=== PATIENT | male | born 1965 | race Caucasian/White ===

== ENCOUNTER 2017-09-30 22:07 | Emergency (ER) | payer OTHER ==
[2017-09-30] MEDS ORDERED: SODIUM CHLORIDE 0.9% 1,000 ML IV STA (22:46)
[2017-09-30] MEDS ORDERED: LORazepam 2 MG/ML INJ IV STA (22:46)
[2017-09-30] MEDS ORDERED: THIAMINE 100 MG/ML 2 ML VIAL IM STA (22:49)
[2017-09-30] MEDS ORDERED: LORazepam 2 MG/ML INJ IV PRN ×3 (22:49)
--- NOTE | 2017-09-30 22:53 | ED ---
Seizure HPI - General Chief Complaint: Seizure Stated Complaint: Seizures Time Seen by Provider: 09/30/17 22:09 Source: patient, EMS Mode of arrival: EMS Limitations: no limitations - History of Present Illness Initial Comments: Patient is a 52-year-old male presenting for seizure-like activity. He is currently at [facility] in his been there for 12 days because he had alcohol withdrawals and had a seizure. He states that his last drink was 12 days ago and he has had no recreational drug use. However, today he was smoking outside when he had sudden onset seizure. He is unsure how long the seizure lasted and when he woke up, he was completely with it and not confused. He states that he did urinate himself but did not hit his head and denies any headache, lightheadedness, dizziness, change in mental status and he was told that when he had the seizure, his limbs were moving rhythmically. He also states that he takes Depakote, Abilify, Zoloft, BuSpar. He also states that he had a history of seizure prior to this particular event. - Related Data Home Medications Medication Instructions Recorded Confirmed ARIPiprazole [Abilify] 5 mg PO HS 09/30/17 09/30/17 Acetaminophen [Tylenol Arthritis] 650 mg PO Q4H PRN 09/30/17 09/30/17 Atenolol [Tenormin] 50 mg PO DAILY 09/30/17 09/30/17 Calcium Carb/Magnesium Ox,Carb 2 tab PO TID 09/30/17 09/30/17 [Sylvain-Mag 500-250 MG Chewable] Divalproex ER [Depakote ER] 1,000 mg PO HS 09/30/17 09/30/17 Ibuprofen [Motrin] 600 mg PO Q6HR PRN 09/30/17 09/30/17 Lisinopril-Hctz 20-25 mg 1 tab PO DAILY 09/30/17 09/30/17 [Zestoretic 20-25] Nicotine 21Mg/24Hr Patch [Habitrol 1 patch TRANSDERM Q48H 09/30/17 09/30/17 21Mg/24Hr Patch] OXcarbazepine [Trileptal] 150 mg PO BID 09/30/17 09/30/17 QUEtiapine FUMARATE [SEROquel] 300 mg PO HS 09/30/17 09/30/17 Sertraline [Zoloft] 100 mg PO BID 09/30/17 09/30/17 busPIRone HCl [Buspar] 10 mg PO TID PRN 09/30/17 09/30/17 Allergies Allergy/AdvReac Type Severity Reaction Status Date / Time No Known Allergies Allergy Verified 09/30/17 22:24 Review of Systems ROS Statement: Those systems with pertinent positive or pertinent negative responses have been documented in the HPI. Constitutional: Negative for chills, fatigue and fever. HENT: Negative for congestion. Respiratory: Negative for chest tightness, shortness of breath and wheezing. Negative for cough Cardiovascular: Negative for chest pain and palpitations. Gastrointestinal: Negative for abdominal pain. Negative for abdominal distention , diarrhea, nausea and vomiting. Genitourinary: Negative for dysuria. Musculoskeletal: Negative for back pain, neck pain and neck stiffness. Skin: Negative for color change. Neurological: Negative for dizziness, speech difficulty, weakness and light- headedness. Positive for seizure-like activity and tremors Psychiatric/Behavioral: Negative for agitation and confusion. Positive for anxiety ROS Other: All systems not noted in ROS Statement are negative. Past Medical History Past Medical History: Seizure Disorder History of Any Multi-Drug Resistant Organisms: None Reported Additional Past Surgical History / Comment(s): stent placed Past Psychological History: No Psychological Hx Reported, Anxiety Smoking Status: Current every day smoker Past Alcohol Use History: Daily Past Drug Use History: Marijuana General Exam - General Exam Comments Initial Comments: Constitutional: Pt is oriented to person, place, and time. Pt appears well- developed and well-nourished. No distress. HENT: Head: Normocephalic and atraumatic. Eyes: EOM are normal. Neck: Normal range of motion. Neck supple. Cardiovascular: Normal rate, regular rhythm, S1 normal, S2 normal and normal heart sounds. Exam reveals no gallop and no friction rub. No murmur heard. Pulmonary/Chest: Effort normal and breath sounds normal. No tachypnea and no bradypnea. No respiratory distress. No wheezes or rales noted. Abdominal: Soft. Bowel sounds are normal. Pt exhibits no shifting dullness, no distension, no pulsatile liver, no fluid wave, no abdominal bruit and no ascites. There is no tenderness. There is no rigidity, no rebound, no guarding, no tenderness at McBurney's point and negative Jaramillo's sign. Musculoskeletal: Normal range of motion. Neurological: Pt is alert and oriented to person, place, and time. No cranial nerve deficit. Patient is tremulous Skin: Skin is warm and dry. No rash noted. Pt is not diaphoretic. No erythema. No pallor. Psychiatric: Pt has a normal mood and affect. Pt behavior is normal. Thought content normal. Limitations: no limitations Course Vital Signs 09/30/17 09/30/17 22:08 23:51 Temperature 99.3 F 97.6 F Pulse Rate 82 70 Respiratory 18 20 Rate Blood Pressure 132/73 140/67 O2 Sat by Pulse 97 96 Oximetry Medical Decision Making - Medical Decision Making Laboratory studies showed that there was no significant leukocytosis and electrolytes are relatively within normal limits. There is also no evidence of transaminitis and urinalysis and urine drug screen were also noted to be negative. However, Depakote level was measured at 20.7 which is below therapeutic limits. Neurology was attempted to be contacted but could not be reached to discuss adjustments for Depakote. Nonetheless, patient was given additional dose here in the emergency department. Cardiac evaluation included EKG which showed no significant abnormalities. There were some larger T waves in V2 and V3 these do not appear to be hyperacute a cardiac etiology is very unlikely considering the patient had no chest pain or shortness of breath and continues to remain symptom-free. Additionally, head CT was not performed as the patient showed no evidence of trauma and had no focal neural deficits. Patient will be given a prescription for Librium in the event that this is alcohol withdrawal. However, it is unclear whether this is truly a seizure like activity or syncope. Nonetheless, patient was strongly advised to follow- up with PCP in the next 1-2 days which she was agreeable to. - Lab Data Result diagrams: 09/30/17 22:26 09/30/17 22:26 Lab Results 09/30/17 09/30/17 09/30/17 Range/Units 22:26 22:26 23:44 WBC 8.7 (3.8-10.6) k/uL RBC 4.73 (4.30-5.90) m/uL Hgb 14.7 (13.0-17.5) gm/dL Hct 43.8 (39.0-53.0) % MCV 92.6 (80.0-100.0) fL MCH 31.0 (25.0-35.0) pg MCHC 33.5 (31.0-37.0) g/dL RDW 12.9 (11.5-15.5) % Plt Count 212 (150-450) k/uL Neutrophils % 71 % Lymphocytes % 18 % Monocytes % 7 % Eosinophils % 2 % Basophils % 1 % Neutrophils # 6.2 (1.3-7.7) k/uL Lymphocytes # 1.6 (1.0-4.8) k/uL Monocytes # 0.6 (0-1.0) k/uL Eosinophils # 0.2 (0-0.7) k/uL Basophils # 0.0 (0-0.2) k/uL Sodium 137 (137-145) mmol/L Potassium 4.4 (3.5-5.1) mmol/L Chloride 100 (98-107) mmol/L Carbon Dioxide 23 (22-30) mmol/L Anion Gap 14 mmol/L BUN 39 H (9-20) mg/dL Creatinine 1.00 (0.66-1.25) mg/dL Est GFR (CKD-EPI)AfAm >90 (>60 ml/min/1.73 sqM) Est GFR (CKD-EPI)NonAf 87 (>60 ml/min/1.73 sqM) Glucose 93 (74-99) mg/dL Calcium 9.4 (8.4-10.2) mg/dL Magnesium 2.2 (1.6-2.3) mg/dL Total Bilirubin 0.1 L (0.2-1.3) mg/dL AST 28 (17-59) U/L ALT 35 (21-72) U/L Alkaline Phosphatase 67 (38-126) U/L Total Protein 6.7 (6.3-8.2) g/dL Albumin 3.8 (3.5-5.0) g/dL Urine Color Light Yellow Urine Appearance Clear (Clear) Urine pH 6.5 (5.0-8.0) Ur Specific [place] 1.015 (1.001-1.035) Urine Protein Negative (Negative) Urine Glucose (UA) Negative (Negative) Urine Ketones Negative (Negative) Urine Blood Negative (Negative) Urine Nitrite Negative (Negative) Urine Bilirubin Negative (Negative) Urine Urobilinogen <2.0 (<2.0) mg/dL Ur Leukocyte Esterase Negative (Negative) Salicylates <1.0 mg/dL Urine Opiates Screen Not Detected (NotDetected) Ur Oxycodone Screen Not Detected (NotDetected) Urine Methadone Screen Not Detected (NotDetected) Ur Propoxyphene Screen Not Detected (NotDetected) Acetaminophen <10.0 ug/mL Ur Barbiturates Screen Not Detected (NotDetected) Valproic Acid 20.7 ug/mL U Tricyclic Antidepress Not Detected (NotDetected) Ur Phencyclidine Scrn Not Detected (NotDetected) Ur Amphetamines Screen Not Detected (NotDetected) U Methamphetamines Scrn Not Detected (NotDetected) U Benzodiazepines Scrn Not Detected (NotDetected) Urine Cocaine Screen Not Detected (NotDetected) U Marijuana (THC) Screen Not Detected (NotDetected) Serum Alcohol <10 mg/dL - EKG Data EKG Comments: EKG shows normal sinus rhythm with a rate of 67 bpm, LA interval 154, QRS 82, QTC 384. There is no significant ST elevations or depressions Disposition Clinical Impression: Seizure-like activity Disposition: HOME SELF-CARE Condition: Good Instructions: Recurrent Seizures in Adults (ED) Is patient prescribed a controlled substance at d/c from ED?: No Referrals: Nonstaff,Physician [Primary Care Provider] - 1-2 days Time of Disposition: 01:06
[2017-09-30 23:05] LABS: Basophils % (A) 1 %; Eosinophils # (A) 0.2 k/uL (0-0.7); Eosinophils % (A) 2 %; HCT 43.8 % (39.0-53.0); HGB 14.7 gm/dL (13.0-17.5); Lymphocytes # (A) 1.6 k/uL (1.0-4.8); Lymphocytes % (A) 18 %; MCHC 33.5 g/dL (31.0-37.0); MCV 92.6 fL (80.0-100.0); Mean Platelet Volume 7.1; Monocytes # (A) 0.6 k/uL (0-1.0); Monocytes % (A) 7 %; Neutrophils # (A) 6.2 k/uL (1.3-7.7); Neutrophils % (A) 71 %; Platelet Count 212 k/uL (150-450); RBC 4.73 m/uL (4.30-5.90); RDW 12.9 % (11.5-15.5); WBC 8.7 k/uL (3.8-10.6)
[2017-09-30 23:12] LABS: ALT 35 U/L (21-72); AST 28 U/L (17-59); Acetaminophen <10.0 ug/mL; Albumin 3.8 g/dL (3.5-5.0); Alcohol <10 mg/dL; Alkaline Phosphatase 67 U/L (38-126); Anion Gap 14 mmol/L; Blood Urea Nitrogen 39 mg/dL (9-20); Calcium 9.4 mg/dL (8.4-10.2); Carbon Dioxide 23 mmol/L (22-30); Chloride 100 mmol/L (98-107); Glucose 93 mg/dL (74-99); Magnesium 2.2 mg/dL (1.6-2.3); Potassium 4.4 mmol/L (3.5-5.1); Salicylate <1.0 mg/dL; Sodium 137 mmol/L (137-145); Total Bilirubin 0.1 mg/dL (0.2-1.3); Total Protein 6.7 g/dL (6.3-8.2)
[2017-09-30 23:17] LABS: Valproic Acid (Depakene) 20.7 ug/mL
[2017-09-30] MEDS ORDERED: clonazePAM 1 MG TAB PO STA (23:25)
[2017-09-30 23:58] LABS: Appearance,Urine Clear (Clear); Bilirubin,Urine Negative (Negative); Blood,Urine Negative (Negative); Color,Urine Light Yellow; Glucose,Urine (UA) Negative (Negative); Ketones,Urine Negative (Negative); Leukocyte Esterase,Urine Negative (Negative); Nitrite,Urine Negative (Negative); PH, Urine 6.5 (5.0-8.0); Protein,Urine Negative (Negative); Specific Gravity,Urine 1.015 (1.001-1.035); Urobilinogen,Urine <2.0 mg/dL (<2.0)
[2017-10-01 00:08] LABS: Amphetamine Screen,Urine Not Detected (NotDetected); Barbiturate Screen,Urine Not Detected (NotDetected); Benzodiazepines Screen,Urine Not Detected (NotDetected); Cocaine Screen,Urine Not Detected (NotDetected); Methadone Screen, Urine Not Detected (NotDetected); Opiate Screen,Urine Not Detected (NotDetected); Oxycodone Screen, Urine Not Detected (NotDetected); Phencyclidine Screen,Urine Not Detected (NotDetected); Tricyclic Antidepressant,Urine Not Detected (NotDetected); Urn Cannabinoid Scrn Not Detected (NotDetected)
[2017-10-01] MEDS ORDERED: DIVALPROEX ER 500 MG TAB.ER.24H PO STA (00:23)
[2017-10-01 01:30] VITALS: BP 148/78; PULSE 78; RESP 16; TEMP 98.1
[2017-10-01] MEDS ORDERED: THIAMINE 100 MG TAB PO SCH (12:00)
== END 2017-10-01 01:29 | disposition home or self-care (01) ==
LOC: EC 22:07
DX: G40.909 Epilepsy, unspecified, not intractable, without status epilepticus (principal); F10.239 Alcohol dependence with withdrawal, unspecified; F41.9 Anxiety disorder, unspecified; F17.200 Nicotine dependence, unspecified, uncomplicated; Z79.899 Other long term (current) drug therapy
CPT/HCPCS: 36415; 93005; 80164; 80053; 83735; 85025; 81003; 80306; 83520 ×2; 80320; 99284; 96374; 96361; 96372; J2060; J3411